=== PATIENT | female | born 1945 | race Two or more races ===

== ENCOUNTER 2019-10-10 10:30 | Inpatient (IN) | payer OTHER ==
[~2019-10-10] VITALS: Ht 162.6 cm; Wt 68.9 kg
[~2019-10-10 10:30] MED LIST: CALCIUM500 M2 PO; CENTRUM SILVER1 EAC2 PO
[2019-10-17] MEDS ORDERED: CEFADROXIL500 MG PO (13:46)
[2019-10-17] MEDS ORDERED: ELIQUIS2.5 MG PO (13:46)
[2019-10-17] MEDS ORDERED: PERCOCET 5-3251 EACH PO (13:46)
== END 2019-10-17 17:49 | DRG 470 ==
LOC: O/R 10-15 06:02 → SURH 10-15 09:30 → O/R 10-15 10:30 → SURH 10-15 15:55
PROVIDERS: ADMIT Orthopaedic Surgery; ATTEND Orthopaedic Surgery
PROC: 0SRB0J9 Replacement of Left Hip Joint with Synthetic Substitute, Cemented, Open Approach (ICD-10-PCS; principal; 2019-10-15 09:30)
DX: M16.12 Unilateral primary osteoarthritis, left hip (principal); D62 Acute posthemorrhagic anemia